=== PATIENT | female | born 1955 | race Caucasian/White ===

== ENCOUNTER 2025-06-29 07:36 | Outpatient (CLI) | payer MEDICARE ==
[2025-06-29 08:27] LABS: #Basophils 0.0 thou/uL (0.0-0.2); #Eosinophils 0.2 thou/uL (0.0-0.7); #Lymphocytes 1.7 thou/uL (1.20-3.40); #Monocytes 0.5 thou/uL (0.11-0.59); #Neutrophils 3.5 thou/uL (1.40-6.50); %Basophils 0.7 % (0.0-1.0); %Eosinophils 4.1 % (0.0-10.0); %Lymphocytes 28.3 % (21.0-51.0); %Monocytes 8.4 % (0.0-10.0); %Neutrophils 58.5 % (42.0-75.0); Hematocrit 45.2 % (36.0-47.0); Hemoglobin 14.2 g/dL (12.0-16.0); Mean Corpuscular Hemoglobin 26.5 pg (27.0-31.0); Mean Corpuscular Volume 84.5 fl (78.0-98.0); Platelet Count 275 10x3/uL (130-400); Red Blood Cell (RBC) Count 5.35 mill/uL (4.20-5.40); White Blood Cell (WBC) Count 6.0 10x3/uL (4.8-10.8)
[2025-06-29 08:36] LABS: ALT (SGPT) 17 U/L (Less than 34); AST (SGOT) 26 U/L (11-34); Albumin 4.6 g/dL (3.1-4.5); Alkaline Phosphatase 72 U/L (40-110); Anion Gap 17 mmol/L (10-20); BUN (Urea Nitrogen) 20 mg/dL (9.8-20.1); Bilirubin, Total 0.5 mg/dL (0.3-1.2); Calc. Creatinine Clearance 0 mL/min (70-130); Calcium 9.3 mg/dL (7.8-10.44); Carbon Dioxide 21 mmol/L (23-31); Cardiac Risk 3.7 (Less than 4.5); Chloride 107 mmol/L (98-107); Cholesterol 160 mg/dl (< 200 Desired); Globulin 3.1 g/dL (2.4-3.5); Glucose 142 mg/dL (80-115); HDL Cholesterol 43 mg/dL (>60 Neg Risk); LDL Cholesterol, Calculated 91 mg/dL; Potassium 4.0 mmol/L (3.5-5.1); Sodium 141 mmol/L (136-145); Triglycerides 128 mg/dL (Less than 150)
[2025-06-29 08:49] LABS: Thyroid Stimulating Hormone 1.7805 uIU/mL (0.35-4.94)
[2025-06-29 09:29] LABS: Glucose, Urine (Dipstick) Negative (Negative); Leukocyte Trace (Negative); Protein, Urine (Dipstick) Negative (Neg-Trace); Specific Gravity, Urine 1.010 (1.005-1.030)
[2025-06-29 09:31] LABS: RBC/HPF 0-3 HPF (0-3); WBC/HPF 0-3 HPF (0-3)
[2025-06-29 09:32] LABS: Bacteria/HPF Rare-Few HPF (None Seen)
[2025-06-29 16:51] LABS: Vitamin D, 25 Hydroxy 12.7 ng/ml (> 30.0)
== END 2025-06-29 07:37 | disposition home or self-care (01) ==
LOC: MADLAB 07:36
DX: Z00.00 Encounter for general adult medical examination without abnormal findings (principal); Z13.1 Encounter for screening for diabetes mellitus
CPT/HCPCS: 36415; 80053; 80061; 81001; 82043; 82306; 83036; 84443; 85025